=== PATIENT | male | born 1970 | race African-American/Black ===

== ENCOUNTER 2018-06-14 08:03 | Inpatient (IN) | payer OTHER ==
[2018-06-14 08:37] VITALS: BMI 23.2
--- NOTE | 2018-06-14 09:15 | HP ---
CIWA Score Nausea/Vomitin-Mild Nausea/No Vomiting Muscle Tremors: 4-Moderate,w/Arms Extend Anxiety: 4-Mod. Anxious/Guarded Agitation: 4-Moderately Restless Paroxysmal Sweats: 2 Orientation: 0-Oriented Tacttile Disturbances: 1-Very Mild Itch/Numbness Auditory Disturbances: 0-None Visual Disturbances: 2-Mild Sensitivity Headache: 2-Mild CIWA-Ar Total Score: 20 - Admission Criteria OASAS Guidelines: Admission for Medically Managed Detox: Requires at least one of the followin. CIWA greater than 12 2. Seizures within the past 24 hours 3. Delirium tremens within the past 24 hours 4. Hallucinations within the past 24 hours 5. Acute intervention needed for co occurring medical disorder 6. Acute intervention needed for co occurring psychiatric disorder 7. Severe withdrawal that cannot be handled at a lower level of care (continued vomiting, continued diarrhea, abnormal vital signs) requiring intravenous medication and/or fluids 8. Admission ROS S - HPI Allergies/Adverse Reactions: Allergies Allergy/AdvReac Type Severity Reaction Status Date / Time Penicillins Allergy Intermediate Rash Verified 06/14/18 08:42 History of Present Illness: pt here requesting detox from etoh use , reports 1 bottle of vodka /day since " since I got home from assisted " , starts drinking in the mornings , reports feeling angry if not drinking , denies tremors, + blackouts , + falls while intoxicated , most recently 3 d ago with abrasions to hands , did not seek medical attention . First age of use 9 , etoh heavily " all my life " , denies heavy use while incarcerated x 10 years ( drug- related charges " PCP " ) , currently on parole , aware of his use per pt was told " go into a program " . Pt reports financing habit from friends " they just give me " . Latest use yesterday evening . PCP : " a lot " , latest use yesterday evening cocaine : " a lot " via inhalation , denies IVDU , latest use yesterday evening . cannabis : " sometimes " tobacco : " sometimes " PMHX : depression ( reports WEllbutrin ) , OA ( knees, elbows ) , reports dx w. dysthymia , R inguinal hernia 2011 w/ mesh [facility] . SHX : pt reports homelessness , has 2 children 14 & 16 in foster care , unemployed , lost housing registered w/ parole , total lifetime incarcerationreports 20 years . Exam Limitations: Clinical Condition, Intoxication - Ebola screening Have you traveled outside of the country in the last 21 days: No (N) Have you had contact with anyone from an Ebola affected area: No Do you have a fever: No - Review of Systems Constitutional: See HPI EENT: reports: Other (glasses , reports dental issues , missing teeth " i need implants ") Respiratory: reports: No Symptoms reported Cardiac: reports: No Symptoms Reported GI: reports: See HPI : reports: No Symptoms Reported Musculoskeletal: reports: See HPI, Joint Pain, Other (reports OA sheryl knees, R elbow) Integumentary: reports: Bruising (hands , r knee) Neuro: reports: See HPI, Headache Endocrine: reports: No Symptoms Reported Psychiatric: reports: Orientated x3, Agitated, Anxious, Depressed Patient History - Smoking Cessation Smoking history: Current some day smoker Initiated information on smoking cessation: No - Substances abused Alcohol Substance route: Oral Frequency: Daily Amount used: liquor- 2pts, beers 24oz x8 Age of first use: 9 Date of last use: 06/14/18 PCP Substance route: Smoking Frequency: Daily Amount used: $10 Age of first use: 14 Date of last use: 06/14/18 Family Disease History - Family Disease History Family Disease History: CA: Mother (d. throat CA 70's ), Other: Father (d. ALzheimer's 76 ), Mother, Brother (d. 29 brain aneurysm ), Sister (2 , A & W ) Admission Physical Exam S - Vital Signs Vital Signs: Vital Signs - 24 hr 06/14/18 08:29 Temperature 97 F L Pulse Rate 62 Respiratory 18 Rate Blood Pressure 128/82 - Physical General Appearance: Yes: Disheveled, Moderate Distress HEENTM: Yes: EOMI, Hearing grossly Normal, Normocephalic, Normal Voice, Other ( missing teeth , poor dentition) Respiratory: Yes: Chest Non-Tender, Lungs Clear, Normal Breath Sounds Neck: Yes: No masses,lesions,Nodules, Trachea in good position Cardiology: Yes: Regular Rhythm, Regular Rate, S1, S2 Abdominal: Yes: Non Tender, Soft Back: Yes: Normal Inspection Musculoskeletal: Yes: Other (unsteady gait) Extremities: Yes: Normal Capillary Refill, Non-Tender, Tremors Neurological: Yes: Fully Oriented, Alert, Motor Strength 5/5, Depressed Affect Integumentary: Yes: Other (superficial abrasions r lateral knee , R hand) - Diagnostic (1) Alcohol abuse Current Visit: Yes Status: Acute (2) Cocaine abuse Current Visit: Yes Status: Acute (3) Tobacco dependence Current Visit: Yes Status: Chronic (4) Phencyclidine (PCP) intoxication Current Visit: Yes Status: Acute (5) Cannabis dependence Current Visit: Yes Status: Acute Breathalyzer - Breathalyzer Breathalyzer: 0 Urine Drug Screen - Test Device Lot number: [id number] Expiration date: 03/07/20 - Control Is test valid?: Yes - Results Drug screen NEGATIVE: No Urine drug screen results: THC-Marijuana, DAVID-Cocaine Inpatient Rehab Admission - Rehab Decision to Admit Inpatient rehab admission?: No
[2018-06-14] MEDS ORDERED: MAGNESIUM CITRATE 300 ML BOTTLE PO PRN (09:24)
[2018-06-14] MEDS ORDERED: diazePAM 5 MG TABLET PO PRN (09:24)
[2018-06-14] MEDS ORDERED: MAG HYDROX/AL HYDROX/SIMETH 30 ML UNIT-DOSE CUP PO PRN (09:24)
[2018-06-14] MEDS ORDERED: IBUPROFEN 400 MG TABLET (FP) PO PRN (09:24)
[2018-06-14] MEDS ORDERED: MAGNESIUM HYDROX 2400MG/30ML ORAL SUSPENSION 30 ML CUP PO PRN (09:24)
[2018-06-14] MEDS ORDERED: MENTHOL/PHENOL 1 EACH UD MM PRN (09:24)
[2018-06-14] MEDS ORDERED: ACETAMINOPHEN 325 MG TABLET (FP) PO PRN ×2 (09:24)
[2018-06-14] MEDS ORDERED: hydrOXYzine PAMOATE 25 MG CAPSULE (FP) PO PRN (09:24)
[2018-06-14] MEDS ORDERED: MELATONIN 5 MG TABLETS PO PRN (09:24)
[2018-06-14] MEDS ORDERED: BISMUTH SUBSALICYLATE 262 MG/15 ML BTL PO PRN (09:24)
[2018-06-14] MEDS ORDERED: METHOCARBAMOL 500 MG TABLET PO PRN (09:24)
[2018-06-14] MEDS: PRENATAL VITAMINS W/ FOLIC ACID TABLET (FP) PO SCH (10:02)
[2018-06-14] MEDS: diazePAM 5 MG TABLET PO SCH ×2 (13:55→22:30)
[2018-06-14] MEDS: THIAMINE HCL 100 MG TABLET (FP) PO SCH (22:29)
[2018-06-15] MEDS: diazePAM 5 MG TABLET PO SCH ×3 (05:53→22:25)
[2018-06-15 10:01] LABS: HEMATOCRIT 43.1 % (35.4-49); MCH 31.4 pg (25.7-33.7); MCHC 32.5 g/dl (32.0-35.9); MEAN CELL VOLUME 96.6 fl (80-96); MEAN PLT VOLUME 9.6 fl (7.5-11.1); PLATELET COUNT 162 K/MM3 (134-434); RBC 4.47 M/mm3 (4.00-5.60); RDW 14.3 % (11.9-15.9); WHITE BLOOD COUNT 4.3 K/mm3 (4.0-10.0)
[2018-06-15 10:14] LABS: ALBUMIN 3.4 g/dl (3.4-5.0); BILIRUBIN,TOTAL 0.3 mg/dL (0.2-1); CALCIUM 8.4 mg/dL (8.5-10.1); CREATININE 0.9 mg/dL (0.55-1.3); POTASSIUM 4.5 mmol/L (3.5-5.1); TOT PROT 6.1 g/dl (6.4-8.2)
--- NOTE | 2018-06-15 10:40 | PN ---
S CIWA - CIWA Score Nausea/Vomitin-No Nausea/No Vomiting Muscle Tremors: 4-Moderate,w/Arms Extend Anxiety: 4-Mod. Anxious/Guarded Agitation: 4-Moderately Restless Paroxysmal Sweats: 3 Orientation: 0-Oriented Tacttile Disturbances: 0-None Auditory Disturbances: 0-None Visual Disturbances: 0-None Headache: 0-None Present CIWA-Ar Total Score: 15 B[facility] Progress Note (SOAP) Subjective: cough with light yellowish phlegm sweats body aches agitation Objective: 06/15/18 11:29 Vital Signs Temperature 97.0 F L 06/15/18 09:54 Pulse Rate 74 06/15/18 09:54 Respiratory Rate 18 06/15/18 09:54 Blood Pressure 130/70 06/15/18 09:54 O2 Sat by Pulse Oximetry (%) Laboratory Tests 06/15/18 06/15/18 07:00 07:00 WBC 4.3 RBC 4.47 Hgb 14.0 Hct 43.1 MCV 96.6 H MCH 31.4 MCHC 32.5 RDW 14.3 Plt Count 162 MPV 9.6 Sodium 142 Potassium 4.5 Chloride 110 H Carbon Dioxide 26 Anion Gap 6 L BUN 9 Creatinine 0.9 Est GFR (CKD-EPI)AfAm 116.65 Est GFR (CKD-EPI)NonAf 100.64 Random Glucose 96 Calcium 8.4 L Total Bilirubin 0.3 AST 21 ALT 33 Alkaline Phosphatase 74 Total Protein 6.1 L Albumin 3.4 labs noted rest of labs pending aaox3 lying in bed no acute distress Assessment: 06/15/18 11:29 withdrawal sx Plan: continue with revised detox Valium regimen mucinex bid increase fluids motrin/tylenol prn d/c for Monday ordered
[2018-06-15] MEDS: PRENATAL VITAMINS W/ FOLIC ACID TABLET (FP) PO SCH (11:31)
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
[2018-06-15] MEDS: guaiFENesin 600 MG TABLET.ER (FP) PO SCH ×2 (12:37→22:26)
[2018-06-15] MEDS ORDERED: diazePAM 5 MG TABLET PO SCH (14:00)
[2018-06-15] MEDS: THIAMINE HCL 100 MG TABLET (FP) PO SCH (22:26)
[2018-06-16] MEDS ORDERED: diazePAM 5 MG TABLET PO ONE (06:00)
[2018-06-16] MEDS: diazePAM 5 MG TABLET PO SCH (06:25)
[2018-06-16] MEDS: PRENATAL VITAMINS W/ FOLIC ACID TABLET (FP) PO SCH (09:52)
[2018-06-16] MEDS: guaiFENesin 600 MG TABLET.ER (FP) PO SCH (09:52)
--- NOTE | 2018-06-16 12:00 | PN ---
S CIWA - CIWA Score Nausea/Vomitin-No Nausea/No Vomiting Muscle Tremors: 3 Anxiety: 2 Agitation: 2 Paroxysmal Sweats: 4-Forehead w/Sweat Beads Orientation: 0-Oriented Tacttile Disturbances: 0-None Auditory Disturbances: 0-None Visual Disturbances: 0-None Headache: 2-Mild CIWA-Ar Total Score: 13 BHS Progress Note (SOAP) Subjective: c/o sweats, body aches anxiety, interrupted sleep, and headache. Objective: 06/16/18 11:59 Vital Signs 06/16/18 09:57 Temperature 97.9 F Pulse Rate 70 Respiratory 18 Rate Blood Pressure 134/78 Assessment: 06/16/18 11:59 AOX3, in no distress Full ROM, ambulating in the unit. withdrawal symptoms persists. Plan: continue detox.
[2018-06-16] MEDS ORDERED: diazePAM 5 MG TABLET PO SCH (14:00)
[2018-06-16 17:57] VITALS: BP 118/69; PULSE 73; TEMP 98.2
--- NOTE | 2018-06-16 17:59 | PN ---
[facility] Progress Note Note: patient would like to go home ,stated he feel better,stable for discharge, Vital Signs Temperature 98.2 F 06/16/18 17:56 Pulse Rate 73 06/16/18 17:56 Respiratory Rate 16 06/16/18 17:56 Blood Pressure 118/69 06/16/18 17:56 O2 Sat by Pulse Oximetry (%) will follow up with elevate as arrangement
--- NOTE | 2018-06-16 18:02 | DS ---
[facility] Detox Discharge Summary Admission Date: 06/14/18 Discharge Date: 06/16/18 - History Present History: Alcohol Dependence, Cannabis Dependence, Cocaine Dependence, Pcp Dependence Additional Comments: patient is stable for discharge today,follow up with after care program as arrangement Pertinent Past History: nicotine dependence - Physical Exam Results Vital Signs: Vital Signs Temperature 98.2 F 06/16/18 17:56 Pulse Rate 73 06/16/18 17:56 Respiratory Rate 16 06/16/18 17:56 Blood Pressure 118/69 06/16/18 17:56 O2 Sat by Pulse Oximetry (%) Pertinent Admission Physical Exam Findings: withdrawal sign and symptom Vital Signs Temperature 98.2 F 06/16/18 17:56 Pulse Rate 73 06/16/18 17:56 Respiratory Rate 16 06/16/18 17:56 Blood Pressure 118/69 06/16/18 17:56 O2 Sat by Pulse Oximetry (%) Laboratory Last Values WBC 4.3 K/mm3 (4.0-10.0) 06/15/18 07:00 RBC 4.47 M/mm3 (4.00-5.60) 06/15/18 07:00 Hgb 14.0 GM/dL (11.7-16.9) 06/15/18 07:00 Hct 43.1 % (35.4-49) 06/15/18 07:00 MCV 96.6 fl (80-96) H 06/15/18 07:00 MCH 31.4 pg (25.7-33.7) 06/15/18 07:00 MCHC 32.5 g/dl (32.0-35.9) 06/15/18 07:00 RDW 14.3 % (11.9-15.9) 06/15/18 07:00 Plt Count 162 K/MM3 (134-434) 06/15/18 07:00 MPV 9.6 fl (7.5-11.1) 06/15/18 07:00 Sodium 142 mmol/L (136-145) 06/15/18 07:00 Potassium 4.5 mmol/L (3.5-5.1) 06/15/18 07:00 Chloride 110 mmol/L (98-107) H 06/15/18 07:00 Carbon Dioxide 26 mmol/L (21-32) 06/15/18 07:00 Anion Gap 6 MMOL/L (8-16) L 06/15/18 07:00 BUN 9 mg/dL (7-18) 06/15/18 07:00 Creatinine 0.9 mg/dL (0.55-1.3) 06/15/18 07:00 Est GFR (CKD-EPI)AfAm 116.65 06/15/18 07:00 Est GFR (CKD-EPI)NonAf 100.64 06/15/18 07:00 Random Glucose 96 mg/dL (74-106) 06/15/18 07:00 Calcium 8.4 mg/dL (8.5-10.1) L 06/15/18 07:00 Total Bilirubin 0.3 mg/dL (0.2-1) 06/15/18 07:00 AST 21 U/L (15-37) 06/15/18 07:00 ALT 33 U/L (13-61) 06/15/18 07:00 Alkaline Phosphatase 74 U/L (45-117) 06/15/18 07:00 Total Protein 6.1 g/dl (6.4-8.2) L 06/15/18 07:00 Albumin 3.4 g/dl (3.4-5.0) 06/15/18 07:00 RPR Titer Nonreactive (NONREACTIVE) 06/15/18 07:00 HIV 1&2 Antibody Screen Negative 06/15/18 07:00 HIV P24 Antigen Negative 06/15/18 07:00 - Treatment Hospital Course: Detox Protocol Followed, Detoxed Safely, Responded well, Discharged Condition Good Patient has Accepted a Rehab Referral to: declined - Medication Discharge Medications: Ambulatory Orders NK [No Known Home Medication] 06/14/18 - AMA Did Patient Leave Against Medical Advice: No
[2018-06-17] MEDS ORDERED: diazePAM 5 MG TABLET PO ONE (06:00)
== END 2018-06-16 18:00 | disposition home or self-care (01) | DRG 774 ==
LOC: YASAS 08:03 → Y6N 09:35
PROVIDERS: ADMIT Surgery; ATTEND Surgery
PROC: HZ2ZZZZ Detoxification Services for Substance Abuse Treatment (ICD-10-PCS; principal; 2018-06-14)
DX: F10.230 Alcohol dependence with withdrawal, uncomplicated (principal); F16.20 Hallucinogen dependence, uncomplicated; F12.20 Cannabis dependence, uncomplicated; F14.10 Cocaine abuse, uncomplicated; F17.210 Nicotine dependence, cigarettes, uncomplicated; F19.24 Other psychoactive substance dependence with psychoactive substance-induced mood disorder; F19.282 Other psychoactive substance dependence with psychoactive substance-induced sleep disorder; M19.90 Unspecified osteoarthritis, unspecified site; Z88.0 Allergy status to penicillin
CPT/HCPCS: 36415; 80053; 85027; 86593; 87389

== ENCOUNTER 2023-03-31 05:38 | Emergency (ER) | payer OTHER ==
[2023-03-31 05:55] VITALS: BP 161/94; PULSE 70; RESP 17; TEMP 98.4; BMI 25.8
[2023-03-31] MEDS ORDERED: ACETAMINOPHEN INJECTION 100 ML IVPB ONE (06:12)
[2023-03-31] MEDS: ACETAMINOPHEN 1000 MG/100 ML BAG IVPB ONE (06:37)
[2023-03-31 06:51] LABS: BASO % 0.9 % (0-2.0); EOS % 0.7 % (0-4.5); HEMATOCRIT 39.4 % (35.4-49); LYMPH % 32.3 % (8-40); MCH 30.6 pg (25.7-33.7); MCHC 32.9 g/dl (32.0-35.9); MONO % 12.9 % (3.8-10.2); NEUT % 53.2 % (42.8-82.8); PLATELET COUNT 179 10^3/uL (134-434); RBC 4.24 M/mm3 (4.00-5.60); RDW 13.6 % (11.9-15.9); WHITE BLOOD COUNT 5.2 K/mm3 (4.0-10.0)
[2023-03-31 06:56] LABS: INR 1.14 (0.83-1.09); PROTHROMBIN TIME (PATIENT) 13.2 SEC (9.7-13.0)
[2023-03-31 06:59] LABS: ACTIVATED PTT 25.1 SECONDS (25.2-36.5)
[2023-03-31 07:07] LABS: POTASSIUM 3.9 mmol/L (3.5-5.1)
[2023-03-31 07:13] LABS: ALBUMIN 3.7 g/dl (3.4-5.0)
[2023-03-31 07:17] LABS: BILIRUBIN,TOTAL 0.4 mg/dL (0.2-1); CREATININE 0.8 mg/dL (0.55-1.3); TOT PROT 6.6 g/dl (6.4-8.2)
== END 2023-03-31 09:17 | disposition home or self-care (01) ==
LOC: JER 05:38
PROC: 3E033NZ Introduction of Analgesics, Hypnotics, Sedatives into Peripheral Vein, Percutaneous Approach (ICD-10-PCS; principal; 2023-03-31)
DX: R51.9 Headache, unspecified (principal); M54.2 Cervicalgia; R55 Syncope and collapse; H53.8 Other visual disturbances; Z20.822 Contact with and (suspected) exposure to COVID-19
CPT/HCPCS: 0241U-QW; 36415; 70450-TC; 71046-TC-FY; 72125-TC; 80053; 84484; 85025; 85610; 85730; 93005; 93010; 99285-25; J0131